=== PATIENT | male | born 1950 | race Caucasian/White ===

== ENCOUNTER 2021-10-24 00:26 | Emergency (ER) | payer MEDICARE, OTHER ==
[2021-10-24] MEDS ORDERED: Acetaminophen/oxyCODONE 325-5 MG Tab PO ONE (00:58)
[2021-10-24] MEDS ORDERED: cefTRIAXone 1 GM, Lidocaine 1% 2.1 ML IM ONE ×2 (00:58)
--- NOTE | 2021-10-24 01:04 | EDM.PDOC ---
ED HPI GENERAL MEDICAL PROBLEM - General Chief Complaint: Back Pain or Injury Stated Complaint: ABCESS ABOVE BUTTOCKS Time Seen by Provider: 10/24/21 00:35 Source of Information: Reports: Patient, Family History Limitations: Reports: No Limitations - History of Present Illness INITIAL COMMENTS - FREE TEXT/NARRATIVE: The patient had a head bleed in 2019 and he is a poor historian. His is here to help. The patient has some pain and erythema to the rectal area. He has not been acting the same. He is not as active. He has no fever or chills. Onset: Gradual Duration: Day(s): Location: Reports: Other (rectal area) Quality: Reports: Sharp Severity: Moderate Improves with: Reports: None Worsens with: Reports: None Associated Symptoms: Reports: No Other Symptoms Buttock Pain Score (Numeric/FACES): 8 - Related Data Allergies Allergy/AdvReac Type Severity Reaction Status Date / Time nut - unspecified Allergy Anaphylactic Verified 10/24/21 00:47 Shock Penicillins Allergy Hives Verified 10/24/21 00:46 shellfish derived Allergy Anaphylactic Verified 10/24/21 00:47 Shock Sulfa (Sulfonamide AdvReac Intermediate Hives Verified 10/24/21 00:45 Antibiotics) Home Meds: Home Meds Doxycycline [Vibramycin] 100 mg PO BID #20 cap 10/24/21 [Rx] oxyCODONE HCl/Acetaminophen [Percocet 5-325 mg Tablet] 1 - 2 each PO Q6HR PRN #20 tablet 10/24/21 [Rx] ED ROS GENERAL - Review of Systems Review Of Systems: See Below Constitutional: Reports: No Symptoms HEENT: Reports: No Symptoms Respiratory: Reports: No Symptoms Cardiovascular: Reports: No Symptoms Endocrine: Reports: No Symptoms GI/Abdominal: Reports: No Symptoms Skin: Reports: Other (Pain and erythema to the rectal area) ED EXAM,LOWER BACK PAIN/INJURY - Physical Exam Exam: See Below Exam Limited By: No Limitations General Appearance: Alert, No Apparent Distress Ears: Normal External Exam Nose: Normal Inspection Head: Atraumatic, Normocephalic Neck: Normal Inspection Respiratory/Chest: No Respiratory Distress, Lungs Clear, Normal Breath Sounds Cardiovascular: Regular Rate, Rhythm, No Edema, No Murmur GI/Abdominal: Soft, Non-Tender, No Organomegaly, No Mass Rectal (Males) Exam: Other (Erythema and pain upon palpation to the area posterior to the rectum. No fluctuance is felt.) Course - Vital Signs Last Recorded V/S: Last Vital Signs Temp 97.3 F 10/24/21 00:47 Pulse 106 H 10/24/21 00:47 Resp 21 H 10/24/21 00:47 BP 159/85 H 10/24/21 00:47 Pulse Ox 96 10/24/21 00:47 - Orders/Labs/Meds Meds: Medications Discontinued Medications Generic Name Dose Route Start Last Admin Trade Name Freq PRN Reason Stop Dose Admin Ceftriaxone Sodium 1 gm/ 0 gm 10/24/21 00:58 Lidocaine HCl 2.1 ml IM 10/24/21 00:59 ONETIME ONE Oxycodone/Acetaminophen 2 tab 10/24/21 00:58 Acetaminophen/Oxycodone 325-5 Mg Tab PO 10/24/21 00:59 ONETIME ONE - Re-Assessments/Exams Free Text/Narrative Re-Assessment/Exam: 10/24/21 01:02 I will give him rocephin 1 gram IM and percocet for pain. I will get him on some doxycycline and have him follow up with one of our clinic providers. Departure - Departure Time of Disposition: 01:05 Disposition: Home, Self-Care 01 Condition: Good Clinical Impression: Perirectal cellulitis - Discharge Information *PRESCRIPTION DRUG MONITORING PROGRAM REVIEWED*: Not Applicable *COPY OF PRESCRIPTION DRUG MONITORING REPORT IN PATIENT ALYSSA: Not Applicable Prescriptions: oxyCODONE HCl/Acetaminophen [Percocet 5-325 mg Tablet] 1 - 2 each PO Q6HR PRN #20 tablet PRN Reason: Pain Doxycycline [Vibramycin] 100 mg PO BID #20 cap Referrals: PCP,None [Primary Care Provider] - Ashish Nuno MD [Physician] - 1 Week Additional Instructions: Take the doxycycline 2 times per day for 10 days. Take the percocet every 6 hours as needed for pain. Follow up with Dr Nuno within a week. Please return if you are worse. Sepsis Event Note (ED) - Evaluation Sepsis Screening Result: No Definite Risk - Focused Exam Vital Signs: Vital Signs Temp Pulse Resp BP Pulse Ox 10/24/21 00:47 97.3 F 106 H 21 H 159/85 H 96
== END 2021-10-24 01:26 | disposition home or self-care (01) ==
LOC: JD.ED 00:26
DX: K61.1 Rectal abscess (principal); Z88.0 Allergy status to penicillin; Z88.2 Allergy status to sulfonamides; Z91.013 Allergy to seafood; Z91.018 Allergy to other foods
CPT/HCPCS: 96372; 99283; A9270; J0696